=== PATIENT | male | born 1990 | race Caucasian/White ===

== ENCOUNTER 2025-02-03 13:35 | Emergency (ER) | payer BC, SELFPAY ==
[2025-02-03 13:42] VITALS: BP 158/106
[2025-02-03 13:48] VITALS: BP 153/93
[2025-02-03 14:00] VITALS: BP 146/79
--- NOTE | 2025-02-03 14:09 | ED.GENMED ---
History of Present Illness
<Keyana Dias PA-C - Last Filed: 02/05/25 12:13>
General
Chief Complaint: Chest Pain
Source: patient
Exam Limitations: none
Time Seen by Provider: 02/03/25 13:58
Nursing documentation reviewed up to this point in time: agreed with
<Emerald Buchanan PA-C - Last Filed: 02/03/25 21:34>
History of Present Illness
History of Present Illness:
.
Phy Exam
<Emerald Buchanan PA-C - Last Filed: 02/03/25 21:34>
Physical Exam
Physical Exam:
.
Scores
<Keyana Dias PA-C - Last Filed: 02/05/25 12:13>
Heart Score for Chest Pain Patients
Heart Score for Chest Pain Patients: 1
Heart Score Risk: 2.5% MACE over next 6 weeks
<Emerald Buchanan PA-C - Last Filed: 02/03/25 21:34>
Heart Score for Chest Pain Patients
STEMI patient?: No
History: Slightly or Non-Suspicious
ECG: Nonspecific Repolarization
Age: </= 45 years
Risk Factors: No Risk Factors
Troponin: </= Normal Limit
Heart Score for Chest Pain Patients: 1
Heart Score Risk: 2.5% MACE over next 6 weeks
Course
<Keyana Dias PA-C - Last Filed: 02/05/25 12:13>
Orders/Labs/Results
Orders:
Orders
02/03/25 13:36
Electrocardiogram (*1) Urgent
Reason for Study: Chest Pain
02/03/25 13:37
EKG- Treatment ONCE
02/03/25 13:58
CR Chest - 2 Views Urgent
Comment:
Reason For Exam: chest pain
02/03/25 14:28
Ketorolac [Toradol] 15 mg IV NOW STA
02/03/25 14:46
CBC/With Diff [Complete Blood Count/With Diff] Stat
Comprehensive Metabolic Panel Urgent
Troponin I Urgent
02/03/25 16:00
EKG- Treatment ONCE
02/03/25 17:21
Troponin I Urgent
02/03/25 17:30
Electrocardiogram (*1) Urgent
Reason for Study: Chest Pain
Abnormal Lab Results
02/03/25
14:46
RBC 4.45 L 10^6/uL
(4.70-6.10)
Hct 38.3 L %
(39.0-52.0)
02/03/25 14:46
02/03/25 14:46
Vital Signs
Blood pressure: 131/76
Initial and Last Documented VS:
Initial Vital Signs
Temp Pulse Resp BP Pulse Ox
36.9 C 78 18 158/106 100
02/03/25 13:42 02/03/25 13:42 02/03/25 13:42 02/03/25 13:42 02/03/25 13:42
Last Documented Vital Signs
Temp Pulse Resp BP Pulse Ox
36.9 C 50 18 131/76 96
02/03/25 13:42 02/03/25 15:15 02/03/25 15:15 02/03/25 15:54 02/03/25 15:15
<Emerald Buchanan PA-C - Last Filed: 02/03/25 21:34>
Orders/Labs/Results
Orders:
Orders
02/03/25 13:36
Electrocardiogram (*1) Urgent
Reason for Study: Chest Pain
02/03/25 13:37
EKG- Treatment ONCE
02/03/25 13:58
CR Chest - 2 Views Urgent
Comment:
Reason For Exam: chest pain
02/03/25 14:28
Ketorolac [Toradol] 15 mg IV NOW STA
02/03/25 14:46
CBC/With Diff [Complete Blood Count/With Diff] Stat
Comprehensive Metabolic Panel Urgent
Troponin I Urgent
02/03/25 16:00
EKG- Treatment ONCE
02/03/25 17:21
Troponin I Urgent
02/03/25 17:30
Electrocardiogram (*1) Urgent
Reason for Study: Chest Pain
Abnormal Lab Results
02/03/25
14:46
RBC 4.45 L 10^6/uL
(4.70-6.10)
Hct 38.3 L %
(39.0-52.0)
02/03/25 14:46
02/03/25 14:46
Vital Signs
Initial and Last Documented VS:
Initial Vital Signs
Temp Pulse Resp BP Pulse Ox
36.9 C 78 18 158/106 100
02/03/25 13:42 02/03/25 13:42 02/03/25 13:42 02/03/25 13:42 02/03/25 13:42
Last Documented Vital Signs
Temp Pulse Resp BP Pulse Ox
36.9 C 50 18 131/76 96
02/03/25 13:42 02/03/25 15:15 02/03/25 15:15 02/03/25 15:54 02/03/25 15:15
<Keyana Dias PA-C - Last Filed: 02/05/25 12:13>
MDM/Problems Addressed
Differential Diagnosis Includes:
see MDM
MDM/Problems Addressed:
Note:
CHIEF COMPLAINT(S)
Intermittent sharp chest pain.
HISTORY OF PRESENT ILLNESS
The patient is a 34-year-old male who presents with intermittent sharp chest pain localized to the left side, which began yesterday. The pain is described as brief, lasting only a few seconds to a couple of minutes. He did not seek care initially
due to the absence of accompanying symptoms such as shortness of breath. This morning, he experienced a mild version of the pain upon waking. After walking four to five miles, which is part of his usual routine, he did not experience exacerbation of
the symptoms. The last episode of pain occurred around 12:30 PM, approximately 15 to 20 minutes after consuming a protein shake. The patient denies associating the pain with heartburn or any typical gastrointestinal symptoms. He reports no
exacerbation with deep breathing or typical movement, though there might be slight relief with positional changes. He denies any recent illness but noted his [id number] daughter had been sick recently. He has no history of medical
problems or medication use.
SOCIAL HISTORY
The patient does not smoke cigarettes. He reports consuming marijuana once or twice in the last year but denies cocaine use. Alcohol consumption is limited to about once weekly.
PHYSICAL EXAM
- Nursing notes reviewed and vital signs reviewed.
GENERAL: Alert , in no apparent distress
EYE: pupils equal and reactive
NECK: Supple
ENT: o/p clr, mmm.
CARDIAC: Regular rate and rhythm .
LUNGS: Clear breath sounds bilaterally, no acute respiratory distress, no wheezes/rales/rhonchi
ABDOMEN: Soft, without focal tenderness, no r/g, no cvat, normal bowel sounds
NEUROLOGICAL: Alert and oriented, no focal neuro deficits
SKIN: Warm and dry, skin intact.
MUSCULOSKELETAL: No edema, well perfused. neg hilary's sign
PSYCH: Normal and appropriate interaction.
PROBLEM LIST
Acute: Intermittent chest pain, non-cardiac in nature, likely post-exertional or possibly gastrointestinal.
PLAN
- Obtain cardiac markers to rule out myocardial infarction.
- Perform a chest radiograph to assess for any cardiopulmonary causes such as cardiomegaly or pleural effusion.
- Discuss considerations for gastrointestinal causes and possibly initiate treatment with antacids if necessary.
- Emphasize the low-risk nature of the pain for cardiac etiology and reassure the patient.
- Advise follow-up for further cardiac evaluation if required, such as an echocardiogram or stress test.
- Encourage monitoring for any changes in symptoms and follow up with primary care provider.
DIFFERENTIAL DIAGNOSIS
The Differential Diagnosis includes, in no particular order and is not limited to:
1. Musculoskeletal chest pain
2. Gastroesophageal reflux disease (GERD)
3. Peptic ulcer disease
4. Costochondritis
5. Esophageal spasm
6. Anxiety-related chest pain
7. Pericarditis
8. Pneumothorax
9. Pulmonary embolism
10. Cardiac ischemia
34-year-old male with nonexertional chest pain intermittent, some yesterday, more frequent episodes today, last was at 12:30 PM. Lasting for several seconds to several minutes. Left sided of his chest nonradiating. Heart score is 0. Vital signs
were initially hypertensive which have improved without treatment. I suspect this was anxiety related. His first EKG has subtle T wave inversion lead III. There is no obvious signs of pericarditis. He is not having positional chest pain. He is
PERC negative.
Chest x-ray independently reviewed by me no obvious cardiomegaly, pleural effusions.
CARE-UPDATE
02/03/25 - 16:20
Patients initial blood work shows troponin level as 0.017, which is considered negative, although not undetectable. The patient has not experienced further episodes of chest pain since initial consultation. Blood pressure initially elevated but now
stabilized, likely due to previous anxiety. Further testing is scheduled, including another troponin test and ECG, to rule out cardiac issues. Current assessment suggests pain is likely musculoskeletal in origin, possibly linked to an old collarbone
injury, or due to reflux or nerve-related issues. No criteria met for blood clot surveillance at this time. Patient discharge is expected contingent on results of additional tests, with recommended follow-up via outpatient care. [employer]
referral deemed optional based on low-risk classification.
<Keyana Dias PA-C - Last Filed: 02/05/25 12:13>
*Pulse Oximetry
SaO2: 100
Oxygen Mode of Delivery: Room air
<Emerald Buchanan PA-C - Last Filed: 02/03/25 21:34>
*Pulse Oximetry
Patient hypoxic: no
*Critical Care Note
Total Time (30-74mins, 75-104mins- exclusive of procedures): Not Applicable
<Emerald Buchanan PA-C - Last Filed: 02/03/25 21:34>
Update Note
Update Note:
I assumed care of patient awaiting repeat troponin and EKG results. Repeat EKG shows evidence of benign early repolarization. Second troponin is undetectable. Patient remains chest pain free on reassessment and he has not had any chest pain in >[address] Ramírez. Will have patient f/u with chest pain hotline. Patient in agreement with plan and he was discharged in stable condition.
ED Attending Note
<Keyana Dias PA-C - Last Filed: 02/05/25 12:13>
-
Portions of this chart may have been created with voice recognition software.� Occasional wrong word or��sound alike� substitutions may have occurred due to the inherent limitations of voice recognition software.
Discharge Plan
Departure
Patient Disposition: Home (Routine Discharge)
Date of Disposition: 02/03/25
Time of Disposition: 18:03
Patient with high blood pressure during this ER visit?: No
Discharge Problem:
Chest pain
Instructions: Chest Pain [facility] Follow Up
Referrals:
NONE,* [Family Provider, Internal Medicine]
Chapincito Armas MD [Active, Cardiology]
Activity Restrictions/Additional Instructions:
We are not sure the cause of your chest pain. It could be musculoskeletal. Avoid heavy lifting or strenuous exercise for now, call your family doctor and consider outpatient follow-up. Return for persistent chest pain, exertional symptoms,
shortness of breath, pain with deep breathing or any concerns
Interventions
Interventions:
*Risk Screen - Suicide Last Done: 02/03/25 13:42
*General Assessment Last Done: 02/03/25 13:42
*Neglect/Abuse Screening Last Done: 02/03/25 13:42
*Nursing Disposition Last Done: 02/03/25 18:30
ED- Cardiac Assessment Last Done: 02/03/25 14:45
Discharge Date and Time
Discharge Date/Time: 02/03/25 18:30
Print Language: SERBIAN
[2025-02-03 14:25] VITALS: BMI 27.6
[2025-02-03] MEDS: TORADOL 15 MG IV (14:50)
[2025-02-03 14:53] LABS: Hematocrit 38.3 % (39.0-52.0); Hemoglobin 13.3 g/dL (13.0-18.0); Mean Corp Hgb Conc. 34.7 g/dL (33.0-37.0); Mean Corpuscular Volume 86.1 fL (80.0-94.0); Nucleated Red Blood Cells % 0 % (-); Platelet Count 172 10^3/uL (130-400); Red Cell Dist. Width 12.4 % (11.5-14.5)
[2025-02-03 15:00] VITALS: BP 131/76
[2025-02-03 15:21] LABS: ALT (SGPT) 27 U/L (0-50); AST (SGOT) 28 U/L (17-59); Albumin 4.5 g/dl (3.5-5.0); Alkaline Phosphatase 41 U/L (38-126); Blood Urea Nitrogen 15 mg/dl (9-20); Calcium 9.7 mg/dl (8.4-10.2); Carbon Dioxide 26 mmol/L (22-30); Chloride 106 mmol/L (98-107); Estimated Creatinine Clearance > 125 ml/min; Glucose 90 mg/dl (70-99); Potassium 4.3 mmol/L (3.5-5.1); Sodium 136 mmol/L (135-145); Total Protein 7.3 g/dl (6.3-8.2); eGFR > 60.00
[2025-02-03 15:25] LABS: Troponin I 0.017 ng/ml
[2025-02-03 17:55] LABS: Troponin I < 0.012 ng/ml
== END 2025-02-03 18:30 | disposition home or self-care (01) ==
LOC: EMR 13:35
PROVIDERS: Physician Assistant; EMERGENCY PHYSICIAN Emergency Medicine
DX: R07.89 Other chest pain (principal)
CPT/HCPCS: 99283; 96374; 71046; 80053; 84484; 85025; 93005